=== PATIENT | female | born 1950 | race Two or more races ===

== ENCOUNTER 2025-04-18 15:27 | Emergency (ER) | payer MEDICARE, OTHER ==
[~2025-04-18] VITALS: Ht 157.5 cm; Wt 68.5 kg
[2025-04-18] MEDS ORDERED: ACETAMINOPHEN ES 500 MG TABLET ONE (16:28)
[2025-04-18] MEDS ORDERED: LOSARTAN POTASSIUM 50 MG TABLET ONE (16:29)
[2025-04-18] MEDS: ACETAMINOPHEN ES 500 MG TABLET PO ONE (16:31)
[2025-04-18] MEDS: LOSARTAN POTASSIUM 25 MG TABLET PO ONE (16:32)
[2025-04-18] MEDS ORDERED: ACET-2030 PO (17:07)
[2025-04-18 17:27] VITALS: BP 154/77; TEMP 98.4; O2SAT 98
== END 2025-04-18 17:27 | disposition home or self-care (01) ==
LOC: ER 15:33
DX: S00.93XA Contusion of unspecified part of head, initial encounter (principal); I10 Essential (primary) hypertension; E11.9 Type 2 diabetes mellitus without complications; M17.0 Bilateral primary osteoarthritis of knee; M19.011 Primary osteoarthritis, right shoulder; M19.021 Primary osteoarthritis, right elbow; Z88.0 Allergy status to penicillin; Z96.653 Presence of artificial knee joint, bilateral; W01.0XXA Fall on same level from slipping, tripping and stumbling without subsequent striking against object, initial encounter; Y93.89 Activity, other specified; Y92.512 Supermarket, store or market as the place of occurrence of the external cause; Y99.8 Other external cause status; R51.9 Headache, unspecified
CPT/HCPCS: 70450-TC; 70486-TC; 73030-TC; 73080-TC; 73564-TC